=== PATIENT | male | born 1965 ===

== ENCOUNTER 2017-11-25 20:55 | Emergency (ER) | payer BC ==
[~2017-11-25] VITALS: Ht 177.8 cm; Wt 79.4 kg
[~2017-11-25 20:55] MED LIST: BENZ100C8 PO; LEVAQUIN500 MG OR; MONT10TA PO; PREDNISONE5 M1 OR
[2017-11-25 21:02] VITALS: TEMP 99.8
[2017-11-25] MEDS ORDERED: METF500T PO (21:09)
[2017-11-25 21:49] LABS: PLATELET COUNT 311 K/uL (142-355)
[2017-11-25 21:58] LABS: POTASSIUM 3.6 mmol/L (3.6-5.2)
[2017-11-25 22:52] VITALS: BP 149/92
== END 2017-11-25 22:54 | disposition home or self-care (01) ==
LOC: ED 20:55
DX: M54.5 Low back pain (principal); S39.012A Strain of muscle, fascia and tendon of lower back, initial encounter; X50.9XXA Other and unspecified overexertion or strenuous movements or postures, initial encounter; Y92.89 Other specified places as the place of occurrence of the external cause
CPT/HCPCS: 80053; 81000; 85027; 96372; 99283; J1885

== ENCOUNTER 2018-01-12 10:29 | Outpatient (CLI) | payer BC ==
[~2018-01-12 10:29] MED LIST changes: +METF500T PO
== END 2018-01-12 23:20 | disposition home or self-care (01) ==
LOC: CT 10:29
DX: R51 Headache (principal)

== ENCOUNTER 2019-11-14 23:00 | Emergency (ER) | payer OTHER ==
[~2019-11-14] VITALS: Ht 177.8 cm; Wt 80.3 kg
[2019-11-15 00:01] LABS: PLATELET COUNT 313 K/uL (142-355)
[2019-11-15 00:13] LABS: POTASSIUM 4.1 mmol/L (3.6-5.2); SODIUM 141 mmol/L (136-145)
[2019-11-15 03:40] VITALS: BP 143/88; TEMP 98.3
== END 2019-11-15 03:40 | disposition home or self-care (01) ==
LOC: ED 23:00
PROVIDERS: Emergency Medicine
DX: R53.1 Weakness (principal); Z20.828 Contact with and (suspected) exposure to other viral communicable diseases
CPT/HCPCS: 36415; 80053; 82550; 82553; 84484; 85027; 85379; 87635; 93005; 96360; 99284; G2023; Q9963; U00003